=== PATIENT | female | born 1985 | race African-American/Black ===

== ENCOUNTER 2017-06-12 22:09 | Emergency (ER) | payer MEDICAID ==
[~2017-06-12] VITALS: Ht 162.6 cm; Wt 76.8 kg
[2017-06-13] MEDS ORDERED: KETOROLAC 60MG/2ML VIAL IM ONE (00:30)
[2017-06-13 01:16] VITALS: BP 116/79
== END 2017-06-13 03:42 | disposition home or self-care (01) ==
LOC: ER 22:09
DX: M62.838 Other muscle spasm (principal); M54.2 Cervicalgia
CPT/HCPCS: 81025; 96372; 99283; J1885